=== PATIENT | male | born 1975 | race American Indian/Alaskan Native ===

== ENCOUNTER 2016-09-17 09:34 | Emergency (ER) | payer SELFPAY ==
[2016-09-17 09:46] VITALS: BP 143/95
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
== END 2016-09-17 10:30 | disposition home or self-care (01) ==
LOC: ED 09:34
DX: R56.9 Unspecified convulsions (principal); R53.83 Other fatigue
CPT/HCPCS: 99283